=== PATIENT | female | born 1950 | race Caucasian/White ===

== ENCOUNTER → 2020-10-21 | Outpatient (CLI) | payer MEDICARE, OTHER ==
--- NOTE | 2020-10-21 14:34 | MR ---
EXAMINATION TYPE: MR shoulder RT wo con DATE OF EXAM: 10/21/2020 COMPARISON: None HISTORY: 70-year-old female with right shoulder pain TECHNIQUE: Multiplanar, multisequence imaging of the right shoulder is performed without contrast. FINDINGS: Very limited visualization of the intracapsular portion of the long biceps tendon. The tendon is eith er severely stenotic or torn. Fibers are seen within the bicipital groove with a mild to moderate ten osynovial fluid. Heterogeneous signal of the subscapularis tendon which appears intact though there is mild fatty infi ltration. Severe degenerative joint space narrowing and marginal spurring at the acromioclavicular joint with a n effusion. Changes do not significantly contact the underlying myotendinous junction of the supraspi natus. However, there is a sizable full-thickness tear of essentially the entire supraspinous tendon measuri ng 2.4 cm AP and stump retracted to the level of the AC joint by 3.9 cm. Fluid within the intervening defect communicating with the shoulder joint and extending into the lateral deltoid shelf. The infraspinatus tendon is very heterogeneous with scattered intrasubstance change. Minimal fatty streaks within the supraspinatus muscle belly and mild with involvement infraspinatus a nd teres minor muscle bellies. Glenohumeral joint shows degenerative change. Significant thinning of articular cartilage along the a nterior and inferior portions of the glenoid and irregular cartilage thinning along the humeral head articular surface. Marginal spurring is present. Small to moderate joint effusion. Irregular superior labrum suggests degenerative change or underlying tear. No para labral cyst. No Hill-Sachs deformity or os acromiale. Patchy red marrow is present and can be seen in setting of anemia, obesity, smoking, chronic disease. No mass lesion within the quadrilateral space. IMPRESSION: 1. Diffuse rotator cuff tendinosis. There is a full-thickness tear of essentially the entire supraspi natus tendon measuring 2.4 cm AP and stump retracted to the level of the AC joint by 3.9 cm. 2. Minimal fatty streaks within both supraspinatus and subscapularis muscle bellies and mild fatty at rophy of the infraspinatus and teres minor muscle bellies. 3. The intracapsular portion of the long biceps tendon is either severely tendinotic or torn. 4. Underlying moderate glenohumeral joint OA. Degenerative versus torn superior labrum. 5. Severe AC joint OA. Spurring does not appear to significantly encroach onto the underlying cuff.
== END | disposition home or self-care (01) ==
LOC: RADMRIMAIN 13:16
PROVIDERS: ATTEND Orthopaedic Surgery
DX: M75.121 Complete rotator cuff tear or rupture of right shoulder, not specified as traumatic (principal); M62.511 Muscle wasting and atrophy, not elsewhere classified, right shoulder; M62.89 Other specified disorders of muscle; M19.011 Primary osteoarthritis, right shoulder; M67.813 Other specified disorders of tendon, right shoulder

== ENCOUNTER 2020-12-15 06:09 | Day surgery (SDC) | payer MEDICARE ==
--- NOTE | 2020-12-14 13:30 | HP ---
HISTORY AND PHYSICAL REASON FOR ADMISSION: Surgery scheduled 12/15/2020 HISTORY OF PRESENT ILLNESS: Olga Lidia Rizzo is a 70-year-old patient seen with progressive right shoulder pain. We discussed options for treatment. She elected to proceed with arthroscopy. Consent obtained. PAST MEDICAL HISTORY: Hyperlipidemia, hypertension, asthma. PAST SURGICAL HISTORY: Cholecystectomy, foot surgery and herniorrhaphy. DAILY MEDICATIONS: Atorvastatin, Celexa, lisinopril. ALLERGIES: LATEX. SOCIAL HISTORY: She denies tobacco use. PHYSICAL EVALUATION OF THE RIGHT SHOULDER: Flexion 140, abduction 110, external rotation is 35 with weakness. Tenderness along the anterior lateral acromion rotator cuff insertion site. Impingement positive 90. Drop- arm sign is positive. Distal neurovascular exam is intact. RADIOGRAPHS: Right shoulder radiographs revealed a type 2 acromion, acromioclavicular joint osteoarthritis and cystic changes of the tuberosity. Right shoulder MRI revealed a retracted rotator cuff tear as well as osteoarthritic changes. IMPRESSION: 1. Right shoulder impingement with retracted rotator cuff tear. 2. Right shoulder acromioclavicular joint osteoarthritis. 3. Hypertension. 4. Hyperlipidemia. PLAN: Right shoulder arthroscopy with subacromial decompression, arthroscopic rotator cuff repair, Jonathan procedure and debridement. MMODL / IJN: [id number] /
[2020-12-15] MEDS ORDERED: LACTATED RINGERS 1,000 ML IV SCH (06:47)
[2020-12-15] MEDS ORDERED: SCOPOLAMINE 1.5MG/72HR PATCH TRANSDERM ONE (06:47)
[2020-12-15] MEDS ORDERED: LIDOCAINE 1% (10MG/ML) FOR IV START INTRADERMA PRN (06:47)
[2020-12-15] MEDS ORDERED: DEXAMETHASONE SOD PHOSPHATE 4 MG/ML 1 ML VIAL IV ONE (06:47)
[2020-12-15] MEDS ORDERED: ONDANSETRON 4 MG/2 ML VIAL IVP ONE (06:47)
[2020-12-15] MEDS ORDERED: MIDAZOLAM 2 MG/2 ML VIAL IV ONE (07:46)
[2020-12-15] MEDS ORDERED: MIDAZOLAM 2 MG/2 ML VIAL ONE (07:54)
[2020-12-15] MEDS ORDERED: PROPOFOL 10 MG/ML 20 ML VIAL IV ONE (07:54)
[2020-12-15] MEDS ORDERED: DEXAMETHASONE SOD PHOSPHATE 4 MG/ML 1 ML VIAL ONE (07:54)
[2020-12-15] MEDS ORDERED: ROCURONIUM 10 MG/ML (5 ML VIAL) IV ONE (07:54)
[2020-12-15] MEDS ORDERED: PHENYLEPHRINE-0.9% NACL SYG 1,000 MCG/10 ML SYRINGE ONE (07:54)
[2020-12-15] MEDS ORDERED: SUCCINYLCHOLINE CHLORIDE 100 MG/5 ML SYR IV ONE (07:54)
[2020-12-15] MEDS ORDERED: NEOSTIGMINE 1 MG/ML 10 ML VIAL ONE (07:54)
[2020-12-15] MEDS ORDERED: GLYCOPYRROLATE 0.2 MG/ML 2 ML VIAL ONE (07:54)
[2020-12-15] MEDS ORDERED: LIDOCAINE 1% INJ 10MG/ML (20 ML MDV) ONE (07:54)
[2020-12-15] MEDS ORDERED: fentaNYL (PF) 50 MCG/ML 2 ML AMP ONE (07:54)
[2020-12-15] MEDS ORDERED: ROPIVACAINE 5 MG/ML 30 ML VIAL ONE (07:54)
[2020-12-15] MEDS ORDERED: HYDROmorphone (PF) 1 MG/ML ONE (07:54)
[2020-12-15] MEDS ORDERED: LACTATED RINGERS 1,000 ML IV ONE (09:59)
--- NOTE | 2020-12-15 10:15 | P.OP ---
Date of Procedure: 12/15/20 Preoperative Diagnosis: Right shoulder impingement Postoperative Diagnosis: 1. Right shoulder rotator cuff tear 2. Right shoulder impingement 3. Right shoulder acromioclavicular joint osteoarthritis 4. Right shoulder partial long head biceps tendon tear 5. Right shoulder superficial labral tear Procedure(s) Performed: 1. Right shoulder arthroscopic rotator cuff repair 2. Right shoulder arthroscopic subacromial decompression 3. Right shoulder arthroscopic Jonathan procedure 4. Right shoulder arthroscopic biceps tenotomy 5. Right shoulder arthroscopic debridement labral tear Implants: 4Arthrex 4.75 swivel lock anchors Anesthesia: GETA, regional (Interscalene block) Surgeon: Maldonado Barahona Medical Assisting Instructor #1: Cristian Barahona Estimated Blood Loss (ml): 11 Pathology: none sent Condition: stable Disposition: PACU Indications for Procedure: 70-year-old patient seen with progressive right shoulder pain. After treatment options were discussed, she elected to proceed with arthroscopy. Operative Findings: See description of procedure Description of Procedure: Patient underwent an interscalene block by department of anesthesia. The patient was then taken to the operative suite. The patient underwent a general anesthetic by the department of anesthesia. The patient was placed into a lateral position and secured. There was appropriate padding of the bony prominence. Right shoulder was then prepped and draped in normal sterile orthopedic fashion. We placed the extremity in 10 pounds of longitudinal traction. A posterior incision was now made for a posterior working portal site. The trocar and cannula were inserted into the glenohumeral joint. Arthroscopy was initiated. Spinal needle was now inserted anteriorly, to ascertain the anterior working portal site. An incision was now made in that area, a trocar was inserted followed by a probe. There was significant partial tearing along head biceps tendon probably at least 70% partial tearing. There were some grade 2 chondral changes of the glenohumeral joint. There was superficial tearing of the superior labrum. I performed an arthroscopic biceps tenotomy. I debrided that superficial labral tear getting down to stable labral tissue. The residual labrum was probed and found to be stable. Instruments were now removed from the glenohumeral joint. Utilizing the posterior working portal site, the trocar and cannula were inserted into the subacromial space. Arthroscopy initiated. I made an incision 2 fingerbreadths lateral to the acromion. I introduced my trocar followed by my [employer] ablator. I now began ablating thick subacromial bursal tissue, which exposed the undersurface of the anterior acromion. There was diminished subacromial space. There was a very prominent anterior acromion. A motorized bur was introduced and a subacromial decompression was performed. I also excised some osteophytes off the inferior aspect of the distal clavicle. The AC joint was visualized and noted to be fairly arthritic. The motorized bur was introduced in the anterior portal site and a Jonathan procedure was performed without difficulty, decompressing the AC joint nicely. I turned my attention to the rotator cuff. There was a 3 cm rotator cuff tear. I debrided the margins getting down to stable tendon tissue. There was significant retraction. I performed a significant released proximally. I through 2 converging sutures in the central portion of the tear and repair that. I cannot pull the tendon over the footprint. I introduced my motorized bur and abraded the footprint area, getting some petechial bleeding. I now made an accessory portal site off the lateral aspect of the acromion. I punched 2 holes medial for medial row fixation with the assistance of José Miguel DOHERTY carefully tapping the punch with a mallet as I held the punch and the camera. I now introduced both anchors into the pre- punched holes and José Miguel DOHERTY tapped them with the mallet as I held anchors and the camera. José Miguel DOHERTY now screwed the anchors in place a while I held the anchor guide and camera. All 8 limbs of suture were now passed through good bites of rotator cuff tendon. I now punched 2 holes for lateral row fixation again I held the punch and camera while José Miguel DOHERTY used a mallet to tap in the punch. We now passed sutures through both anchors and individually I intr oduced the anchors into the pre-punch holes I held the anchor guide in position with one hand holding the camera with the other hand while José Miguel DOHERTY tensioned the sutures and screwed in the anchors one at a time. All residual suture limbs were now clipped. We had good compression of the tendon along the entire footprint. Instruments now removed from the portal sites. All portal sites were approximated with nylon suture. Sterile dressings were applied followed by a shoulder immobilizer. Cristian DOHERTY assisted in this complex case. The patient was awakened, transferred to a bed, and taken to recovery in stable condition.
[2020-12-15 10:27] VITALS: TEMP 96.8
[2020-12-15 10:35] VITALS: RESP 16
[2020-12-15] MEDS: HYDROmorphone 0.5 MG/0.5 ML SYRINGE IVP PRN ×2 (10:38→10:53)
[2020-12-15] MEDS ORDERED: HYDROcodone/APAP 7.5-325MG 1 EACH TAB ONE (11:52)
[2020-12-15] MEDS ORDERED: HYDROcodone/APAP 7.5-325MG 1 EACH TAB PO ONE (11:54)
[2020-12-15 12:12] VITALS: BP 105/66; PULSE 59
--- NOTE | 2020-12-15 13:22 | P.ANPRN ---
Procedure Note - Anesthesia - Nerve Block Performed Right Interscalene Single Time Out Performed: Yes Date of Procedure: 12/15/20 Procedure Start Time: 07:45 Procedure Stop Time: 07:50 Location of Patient: PreOp Indication: Acute Post-Operative Pain, Requested by Surgeon Sedation Type: Sedate with meaningful contact maintained Preparation: Sterile Prep Position: Supine Needle Types: Pajunk Needle Gauge: 21 Ultrasound used to visualize needle placement: Yes Ultrasound used to observe medication spread: Yes Blood Aspirated: No Pain Paresthesia on Injection Noted: No Resistance on Injection: Normal Image Stored and Saved: Yes Events: Uneventful and Well Tolerated (ropi .5% 20cc plus dexamethasone 4mg)
== END 2020-12-15 12:34 | disposition home or self-care (01) ==
LOC: OR 06:09
PROVIDERS: ATTEND Orthopaedic Surgery
DX: M75.101 Unspecified rotator cuff tear or rupture of right shoulder, not specified as traumatic (principal); M19.011 Primary osteoarthritis, right shoulder; S46.211A Strain of muscle, fascia and tendon of other parts of biceps, right arm, initial encounter; S43.401A Unspecified sprain of right shoulder joint, initial encounter; I10 Essential (primary) hypertension; E78.5 Hyperlipidemia, unspecified; Z79.899 Other long term (current) drug therapy
CPT/HCPCS: 64415; 76942; 29827; 29828; 29826; C1713; C1894; J2250; J1100; J2710; J0690; J2405; J2001; J3010; J1170 ×2; J2795; J2370; J0330; J2704